=== PATIENT | female | born 2000 | race Caucasian/White ===

== ENCOUNTER 2020-10-22 21:46 | Emergency (ER) | payer BC ==
[~2020-10-22] VITALS: Ht 165.1 cm; Wt 68.5 kg
[~2020-10-22 21:46] MED LIST: SPRINTEC1 EACH
[2020-10-22] MEDS ORDERED: METHIMAZOLE5 MG PO (22:02)
[2020-10-22 23:57] LABS: URINE BILIRUBIN NEGATIVE (Negative); URINE BLOOD NEGATIVE (Negative); URINE CLARITY CLEAR; URINE COLOR YELLOW; URINE GLUCOSE-RANDOM NEGATIVE (Negative); URINE KETONES NEGATIVE (Negative); URINE LEUKOCYTES-REFLEX NEGATIVE (Negative); URINE NITRITE-REFLEX NEGATIVE (Negative); URINE PROTEIN NEGATIVE (Negative); URINE SPECIFIC GRAVITY <= 1.005 (1.005-1.030); URINE UROBILINOGEN 0.2 E.U./dl (0.2-1.0)
[2020-10-23 00:04] LABS: AMP/METHAMP Negative (Negative); BARBITURATES Negative (Negative); BENZODIAZEPINES Negative (Negative); COCAINE Negative (Negative); METHADONE Negative (Negative); OPIATES Negative (Negative); PCP Negative (Negative); THC Negative (Negative)
[2020-10-23 01:34] VITALS: BP 122/68
== END 2020-10-23 01:35 | disposition home or self-care (01) ==
LOC: M.ERS 21:46
PROVIDERS: Personal Emergency Response Attendant
DX: R42 Dizziness and giddiness (principal); Z79.899 Other long term (current) drug therapy